=== PATIENT | male | born 1975 | race Two or more races ===

== ENCOUNTER 2025-06-01 09:52 | Inpatient (IN) | payer OTHER ==
[~2025-06-01] VITALS: Ht 175.3 cm; Wt 81.1 kg
--- NOTE | 2025-06-01 10:48 | ED.PDOC ---
History of Present Illness(SKN HPI Comments This is a 49 year old male BIB [facility] presenting to the ED with chief complaint of left wrist wound. CHARLEY reports that the patient was taken to an appointment with Dr. Parmar, however, the patient has a noted wound to his left wrist that is worrying for infection as he had previous plates placed in the left wrist. Patient relays that he was advised to come to the ED for admission for further evaluation of the left wrist. Patient denies any fever, chills, numbness, weakness, or tingling. Chief Complaint: Abscess Time Seen by MD: 10:44 History of Present Illness: Nurses Notes, Medications, Allergies Allergies: Coded Allergies: NO KNOWN ALLERGIES (Unverified , 06/01/25) Information Source: Patient, Law [employer] Mode of Arrival: Ambulatory Severity: Moderate Timing: Days Duration: Since onset Prehospital treatment: None Location: Other (Left wrist) Mechanism: Spontaneous Onset Occurence: Indoors Object: None Condition of Object: None Retained Foreign Body: No Wound Type: Unknown Immunization Status of Animal: NA Tetanus: Unknown Associated Signs and Symptoms: Redness, Pus Past Medical History PAST MEDICAL HISTORY: Denies Surgical History (Other): Left wrist surgery Family History Family History: Reviewed,noncontributory to illness Social History Smoker: Non-Smoker Alcohol: Denies ETOH Use Drugs: Denies Drug Use Lives In: Home Constitutional: denies: chills, diaphoresis, fatigue, fever, malaise, sweats, weakness, others EENTM: denies: blurred vision, double vision, ear bleeding, ear discharge, ear drainage, ear pain, ear ringing, eye pain, eye redness, hearing loss, mouth pain, mouth swelling, nasal discharge, nose bleeding, nose congestion, nose p ain, photophobia, tearing, throat pain, throat swelling, voice changes, others Respiratory: denies: cough, hemoptysis, orthopnea, SOB at rest, shortness of breath, SOB with excertion, stridor, wheezing, others Cardiovascular: denies: chest pain, dizzy spells, diaphoresis, Dyspnea on exertion, edema, irregular heart beat, left arm pain, lightheadedness, palpitations, PND, syncope, others Gastrointestinal: denies: abdomen distended, abdominal pain, blood streaked bowels, constipated, diarrhea, dysphagia, difficulty swallowing, hematemesis, melena, nausea, poor appetite, poor fluid intake, rectal bleeding, rectal pain, vomiting, others Genitourinary: denies: burning, dysuria, flank pain, frequency, hematuria, incontinence, penile discharge, penile sore, pain, testicle pain, testicle swelling, urgency, others Neurological: denies: dizziness, fainting, headache, left sided numbness, left sided weakness, numbness, paresthesia, pre-existing deficit, right sided numbness, right sided weakness, seizure, speech problems, tingling, tremors, weakness, others Musculoskeletal: denies: back pain, gout, joint pain, joint swelling, muscle pain, muscle stiffness, neck pain, others Integumetry: reports: wounds (left wrist); denies: bruises, change in color, change in hair/nails, dryness, laceration, lesions, lumps, rash, others Allergic/Immunocompromised: denies: Difficulty Healing, Frequent Infections, Hives, Itching, others Hematologic/Lymphatic: denies: anemia, blood clots, easy bleeding, easy bruising, swollen glands, others Endocrine: denies: excessive hunger, excessive sweating, excessive thirst, excessive urination, flushing, intolerance to cold, intolerance to heat, unexplained weight gain, unexplained weight loss, others Psychiatric: denies: anxiety, bipolar disorder, depression, hopeless, panic disorder, schizophrenia, sleepless, suicidal, others All Other Systems: Reviewed and Negative Physical Exam General Appearance: No Apparent Distress, Normal HEENT: Normal ENT Inspection, Pharynx Normal, TMs Normal Neck: Full Range of Motion, Non-Tender, Normal, Normal Inspection Respiratory: Chest Non-Tender, Lungs Clear, No Accessory Muscle Use, No Respir atory Distress, Normal Breath Sounds Cardiovascular: No Edema, No JVD, No Murmur, No Gallop, Normal Peripheral Pulses, Regular Rate/Rhythm Breast Exam: Deferred Gastrointestinal: No Organomegaly, Non Tender, No Pulsatile Mass, Normal Bowel Sounds, Soft Genitalia: Deferred Pelvic: Deferred Rectal: Deferred Extremities: No calf tenderness, Normal capillary refill, Normal inspection, Normal range of motion, Non-tender, No pedal edema Musculoskeletal : Location: Left Extremity Location: Wrist Apperance: Tenderness (left wrist area of induration and erythema.) Neurologic: Alert, conference producer II-XII nml as Tested, No Motor Deficits, Normal Affect, Normal Mood, No Sensory Deficits Cerebellar Function: Normal Reflexes: Normal Skin: Dry, Normal Color, Warm Lymphatic: No Adenopathy Was a procedure done? Was a procedure done?: No Differential Diagnosis (INTG) Differential Diagnosis: Cellulitis X-Ray, Labs, Meds, VS Vital Signs Date Time Temp Pulse Resp B/P (MAP) Pulse Ox O2 Delivery O2 Flow Rate FiO2 06/01/25 09:54 98.3 59 15 146/82 98 98.3 Lab Test 06/01/25 12:38 06/01/25 11:15 Range/Units Lactic Acid Level 2.9 *H 2.1 *H 0.4-2.0 mmol/L White Blood Count 4.2 L 4.4-10.8 10^3/uL Red Blood Count 5.22 4.5-5.90 10^6/uL Hemoglobin 16.5 13.5-17.5 g/dL Hematocrit 49.1 41.0-53.0 % Mean Corpuscular Volume 94.1 80.0-100.0 fL Mean Corpuscular Hemoglobin 31.6 28.0-32.0 pg Mean Corpuscular Hemoglobin Concent 33.6 32.0-36.0 g/dL Red Cell Distribution Width 13.8 11.8-14.3 % Platelet Count 201 140-450 10^3/uL Mean Platelet Volume 8.0 6.9-10.8 fL Neutrophils (%) (Auto) 53.0 37.0-80.0 % Lymphocytes (%) (Auto) 37.2 10.0-50.0 % Monocytes (%) (Auto) 5.8 0.0-12.0 % Eosinophils (%) (Auto) 3.0 0.0-7.0 % Basophils (%) (Auto) 1.0 0.0-2.0 % Neutrophils # (Auto) 2.2 1.6-8.6 10 ^3/uL Lymphocytes # (Auto) 1.6 0.4-5.4 10 ^3/uL Monocytes # (Auto) 0.2 0-1.3 10 ^3/uL Eosinophils # (Auto) 0.1 0-0.8 10 ^3/uL Basophils # (Auto) 0 0-0.2 10 ^3/uL Nucleated Red Blood Cells 0.1 % Sodium Level 141 136-145 mmol/L Potassium Level 4.2 3.5-5.1 mmol/L Chloride Level 104 98-107 mmol/L Carbon Dioxide Level 27 20-31 mmol/L Anion Gap 10 5-15 Blood Urea Nitrogen 7 L 9-23 mg/dL Creatinine 0.92 0.700-1.30 mg/dL Glomerular Filtration Rate Calc 101 >90 mL/min BUN/Creatinine Ratio 7.6 L 10.0-20.0 Serum Glucose 77 74-106 mg/dL Calcium Level 10.2 8.7-10.4 mg/dL Time of 1ST Reevaluation: 11:42 Reevaluation 1ST: Unchanged Patient Education/Counseling: Diagnosis, Treatment Family Education/Counseling: No Family Present SEPSIS Sepsis Screen Date sepsis recognized/suspect: Jun 01, 2025 Time Sepsis recognized/suspect: 956 Recent Procedure: No On Antibiotic Therapy: No Respiratory Rate >20: No Heart Rate >90: No Temp<36 C (96.8 F) or >38.3 C: No SBP <90 or MAP <65 mmHG: No New Acute Mental Status Change: No Is the patient on CPAP, BIPAP,: No Physician Orders Blood Culture (06/01/25 10:35) Sodium Chloride 0.9% (06/01/25 14:00) Cefazolin 2 Gm/G7x04sb (Ancef) (06/01/25 14:00) Vancomycin 1gm/250ml Kit (06/01/25 14:00) Vital Signs Date Time Temp Pulse Resp B/P (MAP) Pulse Ox O2 Delivery O2 Flow Rate FiO2 06/01/25 09:54 98.3 59 15 146/82 98 98.3 Laboratory Tests Test 06/01/25 11:15 06/01/25 12:38 Lactic Acid Level 2.1 mmol/L (0.4-2.0) *H 2.9 mmol/L (0.4-2.0) *H White Blood Count 4.2 10^3/uL (4.4-10.8) L Departure 1 Departure Time of Disposition: 13:49 (Patient likely with cellulitis. We will empirically cover patient with antibiotics and admit patient for further workup) Impression: Primary Impression: Cellulitis Disposition: ADMITTED INPATIENT Admit to: Tele Condition: Guarded Critical Care Note Critical Care Time?: No Stability Stability form required: No Heart Score Heart Score: Heart Score Response (Comments) Value History N/A 0 EKG N/A 0 Age N/A 0 Risk Factors N/A 0 Troponin N/A 0 Total 0 I personally scribed for JUAN CARLOS JOHNSON MD ([email or web address]) on 06/01/25 at 10:47. Electronically submitted by Alphonse Martinez ([email or web address]). JUAN CARLOS JOHNSON MD Jun 01, 2025 10:47
[2025-06-01 11:32] LABS: Hematocrit 49.1 % (41.0-53.0); Hemoglobin 16.5 g/dL (13.5-17.5); Mean Corpuscular Hemoglobin 31.6 pg (28.0-32.0); Mean Corpuscular Volume 94.1 fL (80.0-100.0); Nucleated Red Blood Cells % 0.1 %
[2025-06-01 11:41] LABS: Chloride 104 mmol/L (98-107); Potassium 4.2 mmol/L (3.5-5.1); Sodium 141 mmol/L (136-145)
[2025-06-01 11:42] LABS: Anion Gap 10 (5-15); Carbon Dioxide 27 mmol/L (20-31)
[2025-06-01 11:43] LABS: Calcium 10.2 mg/dL (8.7-10.4)
[2025-06-01 11:47] LABS: BUN/Creatinine Ratio 7.6 (10.0-20.0); Glucose 77 mg/dL (74-106)
[2025-06-01 11:49] LABS: Blood Urea Nitrogen 7 mg/dL (9-23)
[2025-06-01 12:00] LABS: Lactic Acid w/Reflex 2.1 mmol/L (0.4-2.0)
[2025-06-01] MEDS: SODIUM CHLORIDE 0.9% 1,000 ML IV ONE (14:00)
[2025-06-01] MEDS: VANCOMYCIN 1GM/250ML KIT 250 ML IV ONE (14:46)
[2025-06-01] MEDS: ONDANSETRON HCL 4 MG/2 ML VIAL IV ONE (15:00)
[2025-06-01] MEDS: ONDANSETRON HCL 4 MG/2 ML VIAL ONE (15:01)
[2025-06-01] MEDS ORDERED: VANCOMYCIN PER PHARMACY 0 MG IV SCH (15:30)
[2025-06-01] MEDS ORDERED: MORPHINE SULFATE INJ 2 MG/ml SYRG IV PRN (15:30)
[2025-06-01] MEDS ORDERED: NITROGLYCERIN 0.4 MG SL TAB SL PRN (15:30)
[2025-06-01] MEDS: ceFAZolin 2 GM/D5W50ml 50 ML IV ONE (16:17)
[2025-06-01] MEDS: PIPERACILLIN-TAZOB 3.375GM 100 ML IV SCH (18:20)
--- NOTE | 2025-06-01 20:02 | DVHHP ---
ADMIT DATE: 06/01/2025 ATTENDING PHYSICIAN: Evens Davis MD CHIEF COMPLAINT: Left arm wound with drainage. HISTORY OF PRESENT ILLNESS: This is a 49-year-old male [facility] inmate who was seen in Ortho Clinic today and referred to the Emergency Room for a wound on his left forearm, which was draining pus per patient "since 2021." The patient states that in 2008, he sustained a wrist fracture, in which he underwent surgery and hardware was placed. Since 2021, the patient has had wound developed and of late, he states that pus started draining from the wound, but he tried to get help with medical. He states that he was never given any. He denies any fever, cough, chest pain, or shortness of breath. He denies any pain to the area of the left wrist and forearm. He is now being admitted for further management of cellulitis/abscess formation of the left distal forearm. PAST MEDICAL HISTORY: Denies. PAST SURGICAL HISTORY: He had a preauricular lesion in the left, which was removed and also the left wrist fracture repair. FAMILY HISTORY: Mother had diabetes. SOCIAL HISTORY: Greater than 30-pack years of smoking. He is . He has 10 children. He normally resides in [place], [place]. He has been incarcerated for 2 years with 6 years left on his sentence. REVIEW OF SYSTEMS: GENERAL: Denies any recent weight changes. HEENT: Denies any loss of consciousness, severe headache. CARDIOVASCULAR: Denies chest pain, heart issues. RESPIRATORY: Denies cough, shortness of breath, hemoptysis. GASTROINTESTINAL: Denies nausea, vomiting, diarrhea, or constipation. GENITOURINARY: Noncontributory. NEUROLOGIC: Denies any focal deficits. PHYSICAL EXAMINATION: VITAL SIGNS: His temperature is 98 with a blood pressure of 116/76, heart rate of 70, respiratory rate of 16. HEENT: Normocephalic. Anicteric sclerae. [place] conjunctiva. EOMI. NECK: Supple. No JVD, mass, or bruit. CHEST: Good equal excursion bilateral, nontender. HEART: S1, S2, regular. No click, murmur, or gallop. LUNGS: Good equal exchange bilateral. Clear to auscultation. ABDOMEN: Soft and benign. NEUROLOGIC: He is awake, alert, and oriented x4 without focal deficits. LABORATORY DATA: On the x-ray, we have an x-ray of the left wrist. It shows previous ORIF. ASSESSMENT: Cellulitis of left distal forearm. PLAN: We will start IV antibiotics. He will get Lovenox for DVT prophylaxis, [place] for pain. Ortho consult and order MRI. MD TRAVIS Del Rosario/DONNA TID: [id number] RECEIPT: [id number]
[2025-06-01 21:52] VITALS: BP 134/82; PULSE 58; PULSE 64; RESP 20; TEMP 98.3; O2SAT 99
[2025-06-01] MEDS: VANCOMYCIN 750MG KIT 100 ML IV SCH (23:29)
[2025-06-02] VITALS (7 sets, daily range): BP systolic 119–129; BP diastolic 77–87; PULSE 60–66; RESP 16–18; TEMP 97.6–98; O2SAT 94–98
[2025-06-02] MEDS: HYDROcodone-ACET 5/325MG TAB PO PRN (00:30)
[2025-06-02 07:33] LABS: Hematocrit 43.4 % (41.0-53.0); Hemoglobin 14.6 g/dL (13.5-17.5); Mean Corpuscular Hemoglobin 31.3 pg (28.0-32.0); Mean Corpuscular Volume 93.0 fL (80.0-100.0); Nucleated Red Blood Cells % 0.1 %
[2025-06-02] MEDS: ENOXAPARIN SOD 40 MG/0.4 ML SYRINGE SC SCH (08:27)
--- NOTE | 2025-06-02 13:23 | DVHPN ---
DATE: 06/02/2025 ATTENDING PHYSICIAN: Dr. Evens Davis. SUBJECTIVE: The patient is sitting up in bed watching TV. He is comfortable. He is in no active distress. He just completed lunch. He informed me that he was notified by Ortho that he was supposed to have surgery today, but he was fed a breakfast tray, which he ate. Therefore, surgery was canceled. When I asked how he feels, his answer was "the same." No new complaints. No untoward events noted. OBJECTIVE: VITAL SIGNS: His temperature is 97.9 with a blood pressure of 121/87, a heart rate of 66, respiratory rate is 16, O2 saturation 96% on room air. HEART: S1, S2, regular. LUNGS: Good equal exchange bilaterally. Clear to auscultation. ABDOMEN: Soft and benign. NEUROLOGIC: He is awake, alert, and oriented x 4. He is without focal deficits. EXTREMITIES: Left forearm without change. LABORATORY DATA: GFR is 91. WBC 4.2, hemoglobin 14.6 with a platelet of 193. ASSESSMENT: Cellulitis of left distal forearm. PLAN: We will continue with vancomycin and Zosyn for the cellulitis. We will continue his Lovenox for DVT prophylaxis, [place] for pain. We will await the performance of MRI to rule out possibility of osteomyelitis. MD TRAVIS Del Rosario/EKT TID: [id number] RECEIPT: [id number]
--- NOTE | 2025-06-02 20:07 | DVHINCON2 ---
Consult Note Consult Consult Note History of Present Illness: The patient is a male inmate evaluated today as an inpatient for chronic left distal radius sinus intermittent drainage with hx of ORIF same wrist in 2008 but it started having intermittent drainage in 2021 from the left distal radius small sinus tract , he is incarcerated hence was unable to get care for it until recently when he was seen by [facility]. He denies fevers, chills, or systemic symptoms. Pain is minimal. Some cellulitis and mild drainage noted left diatal radius sinus tract. Xray left wrist also completed. PAST MEDICAL HISTORY: Denies. PAST SURGICAL HISTORY: He had a preauricular lesion in the left, which was removed and also the left wrist fracture ORIF 2008. FAMILY HISTORY: Mother had diabetes. SOCIAL HISTORY: Greater than 30-pack years of smoking. Allergies: No known drug allergies (NKDA) Physical Examination: LEFT DISTAL RADIUS General: Alert, cooperative, in no acute distress. Right Upper Extremity: Inspection: Small sinus tract with mild chronic drainage noted over the dorsal distal radius region with some overlaying cellulitis. Palpation: No warmth, erythema, or fluctuance. No significant edema. Range of Motion: Full and intact at wrist and digits. Neurovascular: Grossly intact. Capillary refill <2 seconds. Other Extremities: Within normal limits. Imaging: X-ray Left Wrist: Hardware in place from prior ORIF. Irregularity and periosteal reaction noted, concerning for chronic osteomyelitis and possible sinus tract communication to hardware. Assessment: Chronic left distal radius sinus drainage with overlaying cellulitis Concern for chronic osteomyelitis secondary to retained hardware Plan: 1. Surgical Intervention: Proceed with irrigation and debridement (I&D) and hardware removal of the left distal radius. Procedure scheduled for tomorrow morning [address] Dennis. 2. Preoperative Orders: NPO after midnight. Pain control as per protocol. Stop any blood thinner started by inpatient team today if possible 3. Consults/Coordination: Case discussed with Dr. Keller, who agrees with surgical plan. 4. Consent: Informed consent obtained for open reduction and internal fixation hardware removal, irrigation, and debridement of the left distal radius. Risks, benefits, and alternatives discussed in detail. Patient verbalized u nderstanding and agreement. 5. Disposition: Medicine/inpatient team to continue inpatient monitoring until surgery. Follow up on intraoperative cultures and postoperative wound care plan. Plan discussed with: Patient, Other (bedside nurse) Visit Coding Surgery Date of Service if different f: Jun 02, 2025 Billing Provider: FEDERICO SHEPPARD Surgery Visit Codes: 02357 - INP CONSULT <55 MIN FEDERICO SHEPPARD Jun 02, 2025 20:07
[2025-06-02] MEDS: PIPERACILLIN-TAZOB 3.375GM 100 ML IV SCH (20:38)
[2025-06-03] VITALS (9 sets, daily range): BP systolic 116–163; BP diastolic 75–94; PULSE 57–101; RESP 16–19; TEMP 97.6–98.1; O2SAT 96–98
--- NOTE | 2025-06-03 00:17 | DVH ---
MRI LEFT FOREARM: HISTORY: infxn COMPARISON: XY L WRIST 3+ VIEW XRAY on DOS: 06/01/25, XY L WRIST 3+ VIEW XRAY on DOS: 10/15/24 TECHNIQUE: Standard noncontrast MRI of the left forearm. CONTRAST: None FINDINGS: There is excessive metal artifact obscuring the wrist including the carpal bones distal radius and ulna. BONY STRUCTURES: Normal cortex and marrow signal. No fracture or focal bone lesion. Minimal degenerative changes are seen of the elbow. MUSCULATURE: Morphology and signal of the adjacent musculotendinous complexes appear normal. NEUROVASCULAR: No abnormality. No soft tissue masses or focal fluid collections. IMPRESSION: 1. No acute abnormalities. Minimal degenerative changes are seen at the elbow. 2. Excessive metal artifact obscures distal radius and ulna. CT May provide better evaluation of the structures.
[2025-06-03 08:43] LABS: INR 0.97 (0.9-1.15); Partial Thromboplastin Time 26.4 SEC (24.5-34.5); Prothrombin Time 10.3 sec (9.3-11.8)
--- NOTE | 2025-06-03 13:22 | DVH ---
CHEST RADIOGRAPH Indication: cad Technique: Single frontal view of the chest was obtained Comparison: None FINDINGS: Lines and Tubes: None Lungs: No focal consolidation. Pleura: No effusion. No pneumothorax. Cardiomediastinal contours: Unremarkable Bones: No acute osseous abnormality. IMPRESSION: No acute cardiopulmonary disease.
[2025-06-03] MEDS: VANCOMYCIN HCL 1000 MG VL ONE (13:50)
--- NOTE | 2025-06-03 14:04 | DVHPN ---
DATE: 06/03/2025 ATTENDING PHYSICIAN: Dr. Evens Davis. SUBJECTIVE: The patient is currently being prepped to be taken down to the OR for today's planned procedure of irrigation/lavage. He states he did not eat this morning. He is in no active distress. He denies any complaints at this time and no untoward events have been noted. OBJECTIVE: VITAL SIGNS: His temperature is 97.7 with a blood pressure of 128/80, a heart rate of 57, a respiratory rate of 16, O2 saturation 96% on room air. HEART: S1, S2 regular. LUNGS: Good equal exchange bilaterally. Clear to auscultation. ABDOMEN: Soft, benign. NEUROLOGIC: He is awake, alert and oriented x 4 without any focal deficits. EXTREMITIES: Left forearm dressing shows some slight yellowish discharge. No active bleeding. LABORATORY DATA: PT and PTT are normal. MRI of left forearm shows: * No acute abnormalities. Minimal degenerative changes seen at the elbow. * Excessive metal artifact obscures distal radius and ulna. Chest x-ray shows no acute disease. ASSESSMENT: Cellulitis, left distal forearm. PLAN: The patient will have procedure today and we will continue with Zosyn and vancomycin for the cellulitis, Lovenox for DVT prophylaxis, and [place] for pain. MD TRAVIS Del Rosario/BRIAN TID: [id number] RECEIPT: [id number]
[2025-06-03] MEDS: BUPIVACAINE 0.25% INJ 50ML VIAL ONE (14:20)
[2025-06-03] MEDS: ceFAZolin 1GM VL ONE (14:24)
[2025-06-03] MEDS ORDERED: MIDAZOLAM HCL 2MG/2ML 2ml VIAL (1mg/ml) IV PRN (15:15)
[2025-06-03] MEDS ORDERED: MORPHINE SULFATE 4 MG/ML SYR/VIAL IV PRN (15:15)
[2025-06-03] MEDS ORDERED: ONDANSETRON HCL 4 MG/2 ML VIAL IV PRN (15:15)
[2025-06-03] MEDS: KETOROLAC TROMETH 30 MG/ML 1ML VIAL IV ONE (15:26)
[2025-06-03] MEDS: HYDROmorphone HCL 2 MG/ML VL/or syr IV PRN (15:30)
[2025-06-03] MEDS: KETOROLAC TROMETH 30 MG/ML 1ML VIAL ONE (15:36)
[2025-06-03] MEDS: hydrALAZINE HCL 20 MG/ML VL IV PRN (15:44)
--- NOTE | 2025-06-03 15:55 | DVH ---
FLUOROSCOPY, OPERATING ROOM PROCEDURE REASON FOR EXAM: LEFT DISTAL RADIUS HARDWARE REMOVAL FLUOROSCOPY TIME: 0:0.7 minutes PEAK SKIN DOSE: 0.03 mGy FINDINGS: Fluoroscopy was provided for Dr. Keller. A single fluoroscopic spot image was submitted to PACS. IMPRESSION: Intraoperative fluoroscopic assistance. Please refer to the operative report for a description of the findings.
[2025-06-03] MEDS: HYDROmorphone HCL 2 MG/ML VL/or syr ONE (18:00)
[2025-06-03 18:21] LABS: Hematocrit 46.1 % (41.0-53.0); Hemoglobin 15.5 g/dL (13.5-17.5); Mean Corpuscular Hemoglobin 31.5 pg (28.0-32.0); Mean Corpuscular Volume 93.6 fL (80.0-100.0); Nucleated Red Blood Cells % 0.0 %
[2025-06-03] MEDS: VANCOMYCIN 1GM/250ML KIT 250 ML IV SCH (21:38)
[2025-06-04 01:00] VITALS: BP 118/71; PULSE 96; RESP 18; TEMP 97.7; O2SAT 97
[2025-06-04 05:00] VITALS: BP 115/66; PULSE 98; RESP 17; TEMP 98; O2SAT 95
[2025-06-04 08:21] VITALS: PULSE 77; RESP 18; O2SAT 96
[2025-06-04 09:00] VITALS: BP 132/87; PULSE 77; RESP 18; TEMP 97.8; O2SAT 96
[2025-06-04] MEDS ORDERED: CIP500T GT (11:51)
--- NOTE | 2025-06-04 12:13 | DVHDS ---
DATE OF DISCHARGE: 06/04/2025 ATTENDING PHYSICIAN: Evens Davis MD. CHIEF COMPLAINT: Left arm wound with drainage. HISTORY OF PRESENT ILLNESS: This is a 49-year-old male [facility] inmate who was seen in the Ortho Clinic on the day of admission and was referred to the Emergency Room for a wound on his left forearm, which was a draining pus per patient since 2021. In the Emergency Room, it was verified that there was sinus drainage in the left distal forearm of purulent material, and I was called to admit the patient for further management. ADMITTING DIAGNOSIS: Cellulitis of left distal forearm, rule out abscess. HOSPITAL COURSE: Admitted to Med/Surg in stable condition. Started on IV antibiotics. Given Lovenox for DVT prophylaxis. Regular diet. [place] for pain. During hospital stay, MRI obtained and revealed no acute abnormalities. Ortho consult was obtained. The patient was taken to the OR and underwent incision, drainage, and lavage. The patient tolerated the procedure well. He was returned to medical floor and observed overnight. No untoward events. Wound cultures revealed Staph aureus sensitive to oxacillin, ciprofloxacin, and Augmentin. The patient has now been discharged back to the care of the [facility] authorities in good stable condition. He is given a prescription for Cipro to be taken for 60 days total. He is instructed to follow up with Health Services [facility] within the next 1 week. MD TRAVIS Del Rosario/KRYSTINT TID: [id number] RECEIPT: [id number]
[2025-06-04 12:20] VITALS: BP 132/87; PULSE 77; RESP 18; TEMP 97.8; O2SAT 96
[2025-06-04 13:00] VITALS: BP 128/76; PULSE 80; RESP 18; TEMP 98; O2SAT 96
[2025-06-04] MEDS ORDERED: PROPOFOL 10 MG/ML 20 ML IV ONE (15:55)
[2025-06-04] MEDS ORDERED: PIPERACILLIN-TAZOB 3.375GM 100 ML IV SCH (22:00)
--- NOTE | 2025-06-06 13:50 | DVHOP2 ---
Operative Report - 2 Report Details Date: 06/03/25 Preop Diagnosis: Infected left wrist hardware/ osteomyelitis Postop Diagnosis: Infected left wrist hardware/ osteomyelitis Surgeon: Zia Keller MD Juice Tester: Aman DAVIS Anesthesiologist: Christiano RUVALCABA Anesthesia: General Consent: The patient was informed of the risks and benefits of the procedure. These include but are not limited to complications of anesthesia, postoperative infection, incomplete relief of symptoms, recurrence of symptoms, damage to blood vessels, nerves and tendons, deep venous thrombosis, pulmonary embolism and possible need for repeat surgery in the future. Estimated Blood Loss: 10 cc Indications for Surgery: infected left wrist with osteomyelitis - hx of surgery in 2008 Name of Procedure Performed 1. Irrigation and debridement of left wrist 2. Left wrist hardware removal 3. Left wrist bone saucerization 4. left wrist flexor synovectomy 5. placement of antibiotic allograft Procedure Details Procedure Details: After informed consent was obtained, the patient was taken to the operating room and placed supine on the operating table. A well-padded tourniquet was applied to the upper arm. After induction of anesthesia, the left upper extremity was prepared and draped in standard sterile fashion. The previous volar incision over the distal radius was utilized. Skin and subc utaneous tissues were dissected sharply. Inflammatory tissue and purulence were encountered overlying the plate. Thorough debridement of necrotic soft tissue, infected granulation tissue, and nonviable bone was performed using curettes, rongeurs, and scalpel. Aeronautical Engineering Teacher deep tissue and bone cultures were obtained prior to antibiotic irrigation. The volar plate and all screws were identified. Soft tissue was cleared from screw heads, and all screws were removed without complication. The plate was re moved in its entirety. No hardware breakage was encountered. The underlying bone demonstrated signs of osteomyelitis. Using curettes and rongeurs, a saucerization of the distal radius was performed to remove all infected and necrotic bone. The cavity was debrided to healthy, bleeding bone edges. Care was taken to preserve structural integrity. The flexor tendons (primarily FPL/FDS/FDP as encountered) were inspected. Tenosynovitis with inflamed synovium was present. Devitalized synovial tissue was excised, and tendon surfaces were lightly debrided without compromising tendon integrity. A total of 6 liters of normal saline with antibiotic solution was used for pulsed lavage. The surgical field was reassessed and appeared clean with no remaining necrotic tissue. An antibiotic-impregnated bone graft was placed into the saucerized cavity of the distal radius to deliver local antibiotic therapy and aid in bone healing. Hemostasis was achieved. The wound was loosely approximated with [deep sutures as needed] and closed with nylon. A sterile dressing was applied Specimen: Culture/ left wrist tissue Condition Fair Disposition Half-Way ZIA KELLER MD Jun 06, 2025 13:50
== END 2025-06-04 14:54 | DRG 511 ==
LOC: EEVIPCON 09:52 → ER 09:52 → OVERFLOW 15:16 → WEST WING 21:42
PROVIDERS: ADMIT Internal Medicine; ATTEND Internal Medicine
PROC: 0PUJ0KZ Supplement Left Radius with Nonautologous Tissue Substitute, Open Approach (ICD-10-PCS; 2025-06-03)
PROC: 0PPN04Z Removal of Internal Fixation Device from Left Carpal, Open Approach (ICD-10-PCS; 2025-06-03)
PROC: 0RBP0ZZ Excision of Left Wrist Joint, Open Approach (ICD-10-PCS; 2025-06-03)
PROC: 0PBN0ZZ Excision of Left Carpal, Open Approach (ICD-10-PCS; principal; 2025-06-03 14:07)
DX: T84.69XA Infection and inflammatory reaction due to internal fixation device of other site, initial encounter (principal); L02.414 Cutaneous abscess of left upper limb; M86.8X2 Other osteomyelitis, upper arm; L03.114 Cellulitis of left upper limb; Y83.8 Other surgical procedures as the cause of abnormal reaction of the patient, or of later complication, without mention of misadventure at the time of the procedure; Y92.89 Other specified places as the place of occurrence of the external cause; M65.922 Unspecified synovitis and tenosynovitis, left upper arm; Z53.9 Procedure and treatment not carried out, unspecified reason; Z83.3 Family history of diabetes mellitus
CPT/HCPCS: 36415; 71045; 73100; 73218; 76000; 80048; 80202; 82565; 83605; 85025; 85610; 85730; 86850; 86900; 86901; 87040; 87070; 87075; 87077; 87081; 87186; 87205; 96365; 96375; G0378; J0690; J1885; J2405; J2543; J2704; J3490